=== PATIENT | male | born 1975 | race Two or more races ===

== ENCOUNTER 2019-04-18 10:21 | Observation (INO) | payer OTHER ==
[~2019-04-18] VITALS: Ht 170.2 cm; Wt 68.9 kg
--- NOTE | 2019-04-18 10:42 | PHYS DOC ---
Past History Past Medical History: No Pertinent History Past Surgical History: No Surgical History Smoking: Non-smoker Alcohol Use: Occasionally Drug Use: None Adult General HPI HPI Patient is a 43-year-old male who presents with left-sided chest discomfort that started approximately midnight last night. Little bit worse with exertion, no respirophasic component. He has been having intermittent symptoms like this for the past 3-4 months. The first time he had symptoms like this there was nausea and vomiting and it lasted approximately 90 minutes. Patient became concerned because this time it has not gone away. There is no radiation of the discomfort. Patient is unable to describe the nature of the pain. No improvement with acetaminophen. No nausea and vomiting this time. No diarrhea. No shortness of breath. Patient denies any cough or fever. Denies any PE risk factors to include trauma, stasis, or known hypercoagulable state. No known family history of early cardiac disease[] Review of Systems Review of Systems Constitutional: Denies fever or chills [] Eyes: Denies change in visual acuity, redness, or eye pain [] HENT: Denies nasal congestion or sore throat [] Respiratory: Denies cough or shortness of breath [] Cardiovascular: No additional information not addressed in HPI [] GI: Denies abdominal pain, nausea, vomiting, bloody stools or diarrhea [] : Denies dysuria or hematuria [] Musculoskeletal: Denies back pain or joint pain [] Integument: Denies rash or skin lesions [] Neurologic: Denies headache, focal weakness or sensory changes [] Endocrine: Denies polyuria or polydipsia [] All other systems were reviewed and found to be within normal limits, except as documented in this note. Physical Exam Physical Exam Constitutional: Well developed, well nourished, no acute distress, non-toxic appearance. [] HENT: Normocephalic, atraumatic, bilateral external ears normal, oropharynx moist, no oral exudates, nose normal. [] Eyes: PERRLA, EOMI, conjunctiva normal, no discharge. [] Neck: Normal range of motion, no tenderness, supple, no stridor. [] Cardiovascular:Heart rate regular rhythm, no murmur [] Lungs & Thorax: Bilateral breath sounds clear to auscultation [] Abdomen: Bowel sounds normal, soft, no tenderness, no masses, no pulsatile masses. [] Skin: Warm, dry, no erythema, no rash. [] Back: No tenderness, no CVA tenderness. [] Extremities: No tenderness, no cyanosis, no clubbing, ROM intact, no edema. [] Neurologic: Alert and oriented X 3, normal motor function, normal sensory function, no focal deficits noted. [] Psychologic: Affect normal, judgement normal, mood normal. [] EKG EKG EKG shows a sinus rhythm at 61 bpm, normal axis, QTC of 424 ms, no ST elevations. Interpreted by me at 1033[] Radiology/Procedures Radiology/Procedures PROCEDURE: CHEST PA & LATERAL CHEST PA LATERAL INDICATION: Chest pain. COMPARISON STUDY: None. FINDINGS: Lungs: Normal lung volume. No pulmonary mass or consolidation. The tracheobronchial tree and hilar structures are normal. Pleura: No pleural effusion or pneumothorax. Heart and Mediastinum: The cardiomediastinal silhouette is normal. The great vessels of the thorax are normal. Bones and Soft Tissues: The bones and soft tissues are within normal limits. IMPRESSION: No acute cardiopulmonary process.[] Course & Med Decision Making Course & Med Decision Making Pertinent Labs and Imaging studies reviewed. (See chart for details) ED course: Patient arrived, was placed in bed, and tolerated exam well. He was given aspirin. He was transferred to and from radiology with any complications. After the return of the laboratory and imaging findings, these were discussed with the patient who voiced understanding. Consultation was made with the hospitalist service for admission. They graciously accepted. Patient was admitted in improved condition with all questions answered. Medical decision making: Patient has a heart score of to and has a follow-up appointment however it's not total May. Since symptoms have reoccurred and are worse with exertion admitting him for chest pain rule out protocol. There is no evidence of pneumonia or pneumothorax. No evidence of esophageal rupture. No evidence of pulmonary embolism nor dissecting thoracic aneurysm.[] Dragon Disclaimer Dragon Disclaimer This electronic medical record was generated, in whole or in part, using a voice recognition dictation system. Departure Departure: Impression: Primary Impression: Chest pain Disposition: ADMITTED INPATIENT Admitting Physician: Geoffrey Smith Condition: IMPROVED Referrals: PCP,NO (PCP) HEART Score for Chest Pain PTs The HEART Score for CP Pts HEART Score for Chest Pain: HEART Score for Chest Pain Response (Comments) Value History Moderately Suspicious 1 ECG Normal 0 Age < 45 0 Risk Factors 1 or 2 Risk Factors 1 Troponin < Normal Limit 0 Total 2 Risk Factors: Risk Factors: DM, Current or recent (<one month) smoker, HTN, HLP, family history of CAD, obesity. Risk Scores: Score 0 - 3: 2.5% MACE over next 6 weeks - Discharge Home Score 4 - 6: 20.3% MACE over next 6 weeks - Admit for Clinical Observation Score 7 - 10: 72.7% MACE over next 6 weeks - Early Invasive Strategies Problem Qualifiers Primary Impression: Chest pain Chest pain type: unspecified Qualified Codes: R07.9 - Chest pain, unspecified LUKASZ BYRD DO Apr 18, 2019 10:42
[2019-04-18 10:59] LABS: ALBUMIN 4.3 g/dL (3.4-5.0); ALBUMIN/GLOBULIN RATIO 1.1 (1.0-1.7); CREATININE 0.9 mg/dL (0.7-1.3); GFR 92.5; POTASSIUM 3.9 mmol/L (3.5-5.1); TOTAL BILIRUBIN 0.4 mg/dL (0.2-1.0); TOTAL PROTEIN 8.2 g/dL (6.4-8.2)
[2019-04-18] MEDS ORDERED: ASPIRIN 81 MG TAB.CHEW PO ONE (11:00)
[2019-04-18 11:02] LABS: BASO % 1 % (0-3); EOS % 0 % (0-3); HEMOGLOBIN 15.4 g/dL (13.0-17.5); LYMPH # 1.4 x10^3/uL (1.0-4.8); LYMPH % 14 % (24-48); MEAN CORPUSCULAR HEMOGLOBIN 28 pg (25-35); MEAN CORPUSCULAR HGB CONC 34 g/dL (31-37); MEAN CORPUSCULAR VOLUME 82 fL (79-100); MONO # 0.5 x10^3/uL (0.0-1.1); MONO % 5 % (0-9); NEUT # 8.1 x10^3uL (1.8-7.7); NEUT % 81 % (31-73); PLATELET COUNT 276 x10^3/uL (140-400); RED CELL DISTRIBUTION WIDTH 14.7 % (11.5-14.5); WHITE BLOOD COUNT 10.1 x10^3/uL (4.0-11.0)
--- NOTE | 2019-04-18 11:07 | RAD ---
CHEST PA LATERAL INDICATION: Chest pain. COMPARISON STUDY: None. FINDINGS: Lungs: Normal lung volume. No pulmonary mass or consolidation. The tracheobronchial tree and hilar structures are normal. Pleura: No pleural effusion or pneumothorax. Heart and Mediastinum: The cardiomediastinal silhouette is normal. The great vessels of the thorax are normal. Bones and Soft Tissues: The bones and soft tissues are within normal limits. IMPRESSION: No acute cardiopulmonary process. Electronically signed by: Juan Juárez MD (04/18/2019 11:05 AM) [facility]
--- NOTE | 2019-04-18 11:24 | EKG ---
[address] [address] Test Date: 2019-04-18 Test Time: 10:33:33 Pat Name: HAMIDA MIRANDA Department: Room: Gender: M Dental Office Assistant: : [id number] Requested By: LUKASZ BYRD Order Number: [id number] Reading MD: Grayson Pinto MD Measurements Intervals [place] Rate: 61 P: 19 AR: 148 QRS: 74 QRSD: 116 T: 28 QT: 416 QTc: 424 Interpretive Statements SR NON-SPECIFIC ST/T CHANGES Electronically Signed On 04-18-2019 16:20:50 CDT by Grayson Pinto MD
[2019-04-18] MEDS ORDERED: NITROGLYCERIN SUBLINGUAL 0.4 MG BOTTLE OF 25. SL PRN (12:00)
[2019-04-18] MEDS ORDERED: ACETAMINOPHEN 325 MG TABLET PO PRN (12:00)
[2019-04-18] MEDS ORDERED: ONDANSETRON PF 4 MG/2 ML VIAL. IV PRN (12:30)
[2019-04-18 12:40] LABS: AMPHETAMINE/METHAMPHETAMINE NEG (NEG); BARBITURATES NEG (NEG); BENZODIAZEPINES NEG (NEG); CANNABINOIDS NEG (NEG); COCAINE NEG (NEG); METHADONE NEG (NEG); OPIATES NEG (NEG); PHENCYCLIDINE NEG (NEG)
[2019-04-18 12:43] LABS: BACTERIA,URINE 0 /HPF (0-FEW); BILIRUBIN,URINE NEG (NEG); CLARITY,URINE CLEAR; COLOR,URINE YELLOW; GLUCOSE,URINE NEG (NEG); NITRITE,URINE NEG (NEG); RBC,URINE 0 /HPF (0-2); UROBILINOGEN,URINE 0.2 mg/dL (0.2 mg/dL); WBC,URINE RARE /HPF (0-4)
[2019-04-18 14:01] VITALS: BP 106/66
--- NOTE | 2019-04-18 14:29 | PDOC2 ---
CONSULT Date of Admission DATE: 04/18/19 TIME: 14:29 Reason for Consult: Chest pain Referring Physician: Dr. Smith Chief Complaint Chest pain Source: Caregiver, Chart review, Patient Problem List Problems Medical Problems: (1) Chest pain Status: Acute History of Present Illness 43-year-old male presented with retrosternal chest pain that started approximately at midnight last night. He stated that he has been having intermittent similar episodes associated with nausea and lasting anywhere from 1 - 2 hours over the last 3-4 months. He denied any exertional component. He also denied any orthopnea/PND, palpitations or syncope. Cardiovascular: No pertinent hx Past Surgical History: No pertinent history Family History Negative for premature coronary disease Social History Patient admitted to social intake of alcohol but denied any smoking or drug abuse Current Medications Current Medications Aspirin (Children'S Aspirin) 324 mg 1X ONCE PO Last administered on 04/18/19at 10:52; Start 04/18/19 at 11:00; Stop 04/18/19 at 11:01; Status DC Ondansetron HCl (Zofran) 4 mg PRN Q4HRS PRN IV NAUSEA/VOMITING; Start 04/18/19 at 12:30; Stop 04/19/19 at 12:29 Acetaminophen (Tylenol) 650 mg PRN Q4HRS PRN PO FEVER; Start 04/18/19 at 12:00; Stop 04/19/19 at 11:59 Nitroglycerin (Nitrostat) 0.4 mg PRN Q5MIN PRN SL CHEST PAIN; Start 04/18/19 at 12:00; Stop 04/19/19 at 11:59 Allergies: Coded Allergies: No Known Drug Allergies (Unverified , 04/18/19) PSYCHOLOGICAL ROS: No: Hallucinations Eyes: No: Loss of vision HEENT: No: Epistaxis Respiratory: No: Hemoptysis Cardiovascular: yes: Chest Pain Gastrointestinal: No: Vomiting Genitourinary: No: [place] Neurological: No: Seizures Skin: No: Rash General: Alert, Oriented X3 HEENT: Atraumatic, PERRLA Lungs: Clear to auscultation Heart: Regular rate Abdomen: Soft, No tenderness Extremities: No edema Psych/Mental Status: Mood NL VITALS Vital Signs Date Time Temp Pulse Resp B/P (MAP) Pulse Ox O2 Delivery O2 Flow Rate FiO2 04/18/19 14:01 97.9 55 20 106/66 (79) 98 Room Air Labs Laboratory Tests Test 04/18/19 10:30 04/18/19 11:00 04/18/19 11:56 White Blood Count 10.1 x10^3/uL (4.0-11.0) Red Blood Count 5.60 x10^6/uL (4.30-5.70) Hemoglobin 15.4 g/dL (13.0-17.5) Hematocrit 46.0 % (39.0-53.0) Mean Corpuscular Volume 82 fL (79-100) Mean Corpuscular Hemoglobin 28 pg (25-35) Mean Corpuscular Hemoglobin Concent 34 g/dL (31-37) Red Cell Distribution Width 14.7 % (11.5-14.5) Platelet Count 276 x10^3/uL (140-400) Neutrophils (%) (Auto) 81 % (31-73) Lymphocytes (%) (Auto) 14 % (24-48) Monocytes (%) (Auto) 5 % (0-9) Eosinophils (%) (Auto) 0 % (0-3) Basophils (%) (Auto) 1 % (0-3) Neutrophils # (Auto) 8.1 x10^3uL (1.8-7.7) Lymphocytes # (Auto) 1.4 x10^3/uL (1.0-4.8) Monocytes # (Auto) 0.5 x10^3/uL (0.0-1.1) Eosinophils # (Auto) 0.0 x10^3/uL (0.0-0.7) Basophils # (Auto) 0.0 x10^3/uL (0.0-0.2) Sodium Level 138 mmol/L (136-145) Potassium Level 3.9 mmol/L (3.5-5.1) Chloride Level 102 mmol/L (98-107) Carbon Dioxide Level 27 mmol/L (21-32) Anion Gap 9 (6-14) Blood Urea Nitrogen 18 mg/dL (8-26) Creatinine 0.9 mg/dL (0.7-1.3) Estimated GFR (Cockcroft-Gault) 92.5 BUN/Creatinine Ratio 20 (6-20) Glucose Level 134 mg/dL (70-99) Calcium Level 9.0 mg/dL (8.5-10.1) Magnesium Level 2.0 mg/dL (1.8-2.4) Total Bilirubin 0.4 mg/dL (0.2-1.0) Aspartate Amino Transf (AST/SGOT) 22 U/L (15-37) Alanine Aminotransferase (ALT/SGPT) 37 U/L (16-63) Alkaline Phosphatase 100 U/L (46-116) Troponin I Quantitative < 0.017 ng/mL (0-0.055) Total Protein 8.2 g/dL (6.4-8.2) Albumin 4.3 g/dL (3.4-5.0) Albumin/Globulin Ratio 1.1 (1.0-1.7) Lipase 92 U/L (73-393) Prothrombin Time 9.9 SEC (9.4-11.4) Prothromb Time International Ratio 1.0 (0.9-1.1) Activated Partial Thromboplast Time 25 SEC (23-33) D-Dimer ([place]) < 0.19 mg/L (0.00-0.50) Urine Collection Type Void Urine Color Yellow Urine Clarity Clear Urine pH 7.0 Urine Specific [place] 1.015 Urine Protein Neg (NEG-TRACE) Urine Glucose (UA) Neg mg/dL (NEG) Urine Ketones (Stick) Neg mg/dL (NEG) Urine Blood Neg (NEG) Urine Nitrite Neg (NEG) Urine Bilirubin Neg (NEG) Urine Urobilinogen Dipstick 0.2 mg/dL (0.2 mg/dL) Urine Leukocyte Esterase Neg (NEG) Urine RBC 0 /HPF (0-2) Urine WBC Rare /HPF (0-4) Urine Squamous Epithelial Cells None /LPF Urine Bacteria 0 /HPF (0-FEW) Urine Mucus Slight /LPF Urine Opiates Screen Neg (NEG) Urine Methadone Screen Neg (NEG) Urine Barbiturates Neg (NEG) Urine Phencyclidine Screen Neg (NEG) Urine Amphetamine/Methamphetamine Neg (NEG) Urine Benzodiazepines Screen Neg (NEG) Urine Cocaine Screen Neg (NEG) Urine Cannabinoids Screen Neg (NEG) Urine Ethyl Alcohol Neg (NEG) Assessment/Plan Chest pain with atypical features. Myocardial infarction has been ruled out. Plan for outpatient exercise stress echocardiogram to rule out ischemia. Thank you for your consultation. YOON MENDOZA MD Apr 18, 2019 14:29
--- NOTE | 2019-04-19 16:11 | SSS ---
ADMIT DATE: HISTORY OF PRESENT ILLNESS: The patient is a 43-year-old male patient who presented to Emergency Room with ____ chest pain, started approximately at midnight, the night before. He stated he has been having intermittent similar episodes associated with nausea lasting anywhere between 1-2 hours over the last 3-4 months. He denied any exertional component. He also denied any orthopnea or paroxysmal nocturnal dyspnea, palpitations, syncope. He was evaluated in the Emergency Room and has had 2 sets of cardiac enzymes that were negative. He was seen by the Cardiology team who basically recommended the patient can arrange for outpatient exercise stress test and echocardiogram and the patient was discharged home. PAST MEDICAL HISTORY: Unremarkable. PAST SURGICAL HISTORY: Unremarkable. FAMILY HISTORY: Negative for premature coronary artery disease. SOCIAL HISTORY: The patient admitted to social intake of alcohol, but denied any smoking or drug abuse. MEDICATIONS: He was on no medication. ALLERGIES: He has no known drug allergies. PHYSICAL EXAMINATION: GENERAL: When he arrived to the Emergency Room, he looked well and was clearly in no apparent respiratory distress. No jaundice, cyanosis or thyromegaly. No jugular venous distention. No lower limb edema. VITAL SIGNS: Her heart rate was 69, blood pressure was 132/77, temperature was 98, respiratory rate was 16 and oxygen saturation was 99%. HEAD, EYES, EARS, NOSE AND THROAT: Showed normocephalic, atraumatic. NECK: Supple. HEART: Showed normal first and second heart sounds. No gallop, rub or murmur. CHEST: Clear to auscultation. No crepitation or rhonchi. ABDOMEN: Distended, soft, nontender. NEUROLOGIC: He was awake, alert, responding appropriately. All cranial nerves intact. EXTREMITIES: He moves extremities without difficulty, ambulates without assistance of assistive devices. LABORATORY DATA: On admission showed white cell count of 10,000, hemoglobin 15, hematocrit 46, MCV 82 and platelet count 276,000 with normal manual differential. His prothrombin time was 9.9, INR of 1, aPTT was 25 and D-dimer was less than 0.19. His serum sodium 138, potassium 3.9, chloride 102, bicarbonate 27, anion gap of 9, BUN 18, creatinine 0.9, estimated GFR was 93 mL per minute. Her glucose 134, calcium was 9, magnesium 2. Total bilirubin, AST, ALT, alkaline phosphatase were normal. Total protein was 8.2, albumin was 4.2. He had 2 sets of cardiac enzymes, both of them showed troponin to be less than 0.017. Serum triglycerides were 97, total cholesterol 239, LDL cholesterol 177, VLDL 19 and HDL cholesterol of 43 and the ratio was 5. Urinalysis was unremarkable. Tox screen was negative. His EKG showed that he was in sinus rhythm at 61 beats per minute with normal axis, normal QT interval, no ST segment elevation. Chest x-ray showed no acute cardiopulmonary process. ASSESSMENT AND PLAN: As he ruled out for myocardial infarction, he was discharged home with arrangement for outpatient stress test and echocardiogram. FINAL DISCHARGE DIAGNOSIS: Atypical chest pain. CEDRIC HERRERA MD DR: BRITT/jose f JOB#: [id number] / [id number]
== END 2019-04-18 18:00 | disposition home or self-care (01) ==
LOC: ER 10:21 → 1 SOUTH 12:00
PROVIDERS: ADMIT Internal Medicine; ATTEND Internal Medicine
DX: R07.89 Other chest pain (principal); R11.2 Nausea with vomiting, unspecified
CPT/HCPCS: 36415; 71046; 80053; 80061; 80307; 81001; 83690; 83735; 84484; 85025; 85379; 85610; 85730; 93005; 99284; G0378; G0379